=== PATIENT | female | born 1975 | race Caucasian/White ===

== ENCOUNTER → 2019-08-26 08:46 | Outpatient (CLI) | payer MEDICARE, MEDICAID, SELFPAY ==
--- NOTE | 2019-08-26 08:48 | DI.CT.S_ITS ---
PROCEDURE: CT CHEST ABD PEL W CON INDICATIONS: Preoperative evaluation for anti-reflux surgery TECHNIQUE: After the administration of oral and intravenous contrast, 5 mm thick sections acquired from the lung apices to the symphysis. 5 mm coronal and sagittal reformats were performed, with additional 7 mm coronal MIP reformats through the lungs. For radiation dose reduction, the following was used: automated exposure control, adjustment of mA and/or kV according to patient size. COMPARISON: None. FINDINGS: Image quality: Excellent. CHEST: Lungs and pleura: No acute airspace opacities. Diffuse haziness throughout the lungs is likely secondary to decrease the dose. No focal consolidations. No evidence of aspiration pneumonia. No pleural effusions or pneumothorax. Central and peripheral airways appear patent and normal in caliber. Mediastinum: Heart size is at the upper limits of normal. No pericardial effusion. No mediastinal or hilar adenopathy by size criteria. Thoracic aorta and central pulmonary arteries are normal in size. Esophagus is normal in caliber. No hiatal hernia. Chest wall: No axillary or supraclavicular adenopathy by size criteria. Thyroid gland is unremarkable. ABDOMEN: Solid organs: Liver is normal in size and mildly diffusely hypodense without focal lesion. Gallbladder is partially contracted and is most entirely filled with hyperdense material versus calcified. A small hypodense filling defect is present near the neck. Biliary system is non dilated. Pancreas enhances normally. Spleen is normal in size and enhancement. There is a splenule anterior and caudal to the spleen. No adrenal nodules. Kidneys demonstrate normal size and enhancement, without hydronephrosis. Small corticomedullary cyst in the medial aspect of the left kidney. Peritoneum and bowel: Bowel loops demonstrate normal wall thickness and caliber. No free fluid or air. Nodes and vessels: No retroperitoneal or mesenteric adenopathy by size criteria. Aorta and inferior vena cava are normal in size. Miscellaneous: No ventral hernias. PELVIS: Genitourinary: Bladder wall thickness is normal. Uterus and ovaries are normal. Miscellaneous: No inguinal hernias or adenopathy. Bones: No suspicious bony lesions. No vertebral body compression fractures. IMPRESSION: 1. No suspicious findings in the chest. 2. Partially contracted, densely calcified gallbladder with a small filling defect near the intact of uncertain etiology. 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 3. Mild hepatic steatosis. 4. Heart size at the upper limits of normal. Dictated by: Floresita Corrales M.D. on 08/26/2019 at 13:24 Approved by: Floresita Corrales M.D. on 08/26/2019 at 13:32
== END ==
PROVIDERS: PCP Physician Assistant; Referring Provider Surgery; Visit Provider Surgery
DX: K44.9 Diaphragmatic hernia without obstruction or gangrene (principal); K21.9 Gastro-esophageal reflux disease without esophagitis; K76.0 Fatty (change of) liver, not elsewhere classified
CPT/HCPCS: 71260; 74177; Q9967

== ENCOUNTER → 2019-10-14 10:43 | Outpatient (CLI) | payer MEDICARE, MEDICAID, SELFPAY ==
--- NOTE | 2019-10-14 10:45 | DI.US.S_ITS ---
PROCEDURE: US ABDOMEN LIMITED INDICATIONS: ABN CT TECHNIQUE: Real-time focused scanning was performed of the abdomen, with image documentation. COMPARISON: [facility], CT, CT CHEST ABD PEL W CON, 08/26/2019, 9:35. FINDINGS: The liver demonstrates normal size. The liver demonstrates generalized increased echogenicity. This decreases ultrasound sensitivity for detection of hepatic masses. The gallbladder is packed with gallstones. This is seen on the prior CT. The gallbladder wall is not frankly thickened. No pericholecystic fluid is seen. The sonographic Pelayo sign is negative. There is no biliary dilatation, the common bile duct measures 7 mm. The visualized pancreas is unremarkable. IMPRESSION: The gallbladder is filled with gallstones. This can also be seen on the prior CT. No additional merari signs of cholecystitis are seen. The common bile duct measures at the upper limits of normal at 7 mm. Dictated by: Louis Perales M.D. on 10/14/2019 at 10:54 Approved by: Louis Perales M.D. on 10/14/2019 at 10:56
== END ==
PROVIDERS: PCP Physician Assistant; Referring Provider Surgery; Visit Provider Surgery
DX: R93.2 Abnormal findings on diagnostic imaging of liver and biliary tract (principal); R10.9 Unspecified abdominal pain; K80.20 Calculus of gallbladder without cholecystitis without obstruction
CPT/HCPCS: 76705

== ENCOUNTER → 2019-11-03 13:31 | Outpatient (CLI) | payer MEDICARE, MEDICAID, SELFPAY ==
[2019-11-04 13:45] LABS: COVID19 Sendout Not Detected (Not Detect)
== END ==
PROVIDERS: PCP Physician Assistant; Visit Provider Physician Assistant
DX: Z11.59 Encounter for screening for other viral diseases (principal)
CPT/HCPCS: 87635

== ENCOUNTER 2019-11-06 11:28 | Day surgery (SDC) | payer MEDICARE, MEDICAID, SELFPAY ==
[2019-11-06] VITALS (7 sets, daily range): BP systolic 105–121; BP diastolic 61–85; PULSE 75–85; RESP 10–16; TEMP 36.2–36.8; O2SAT 88–98; BMI 34.9
--- NOTE | 2019-11-06 | PATH_ITS ---
[facility] Accession Number: [id number] . 01 Material submitted: . gallbladder - GALLBLADDER . 02 Diagnosis: Gallbladder, Cholecystectomy: Cholelithiasis with mild chronic cholecystitis. No evidence of neoplasm. MRV 11/08/2019 1100 Local . 02 Electronically signed: . Franco Crowder MD, PhD, Pathologist NPI- [id number] . 01 Gross description: . Received in formalin, labeled gallbladder and consists of a 7.0 x 2.5 x 2.0 cm intact gallbladder with a 0.2 cm in diameter cystic duct. The serosa is hernandez-pink and smooth. Opening reveals multiple firm to friable green to hernandez-white cholelith fragments measuring 4.0 x 4.0 x 2.0 cm in aggregate. One cholelith is firmly lodged within the neck of the specimen. The mucosa is hernandez-pink and trabeculated, and the wall thickness measures 0.1 cm. Joiner Helper sections are submitted, to include cystic duct margin (en face, blue), body and fundus. ([id number]) /MRV 11/07/2019 1455 Local . 02 Pathologist provided ICD-10: K80.60 . 02 CPT . 572658 Performed at: 01 [facility] [address], [place], [place] [id number] MD Hiren Vallejo MD Phone: [phone] Performed at: 02 [facility] [address] [place], [place] [id number] MD Svetlana Whatley MD Phone: [phone]
[2019-11-06] MEDS: LACTATED RINGERS 1,000 ML 100 ML IV ×2 (12:03→14:51)
[2019-11-06] MEDS: ACETAMINOPHEN 325 MG TABLET 975 MG PO (12:06)
[2019-11-06] MEDS: SCOPOLAMINE 1 PATCH TOP (12:08)
[2019-11-06] MEDS: Non-Formulary Medication (Indocyanine 25 MG) 25 EACH IV (12:12)
--- NOTE | 2019-11-06 13:26 | PM.PREOP ---
Pre-operative Note COVID-19 COVID-19 status: Negative Result date/Date tested (Pos, Neg/Pending): 11/03/19 Interval Note History & Physical reviewed/Exam performed by Physician: Yes Changes to H&P: No
[2019-11-06] MEDS: PIPERACILLIN-TAZO 3.375 GM/50 ML FROZ.PIGGY IV (14:02)
--- NOTE | 2019-11-06 14:22 | PM.PROC.1 ---
Procedures Date/Time Date of procedure: 11/06/19 Time of procedure: 14:07 Intubation Time out performed: Yes Intubation complications: difficult intubation Additional comments: Difficult Airway Note Patient exam: MP2, small mouth opening, retrognathic, neck ROM decreased, obese. Procedure: Success with glidescope LoPro S3, (+) stylette. Easy mask with oral airway between attempts. Grade 3 with Bravo 2, Grade 4 with Mac 4. See anesthetic record 11/06/2019 for celeste holcomb. BBnaila DESAI Anesthesiologist
--- NOTE | 2019-11-06 14:24 | SUR.OPER ---
Supine on padded OR bed, head on pillow, arms secured on padded arm boards at <90 degrees abduction, legs uncrossed, safety belt at thigh, tape over blanket over lower legs.
[2019-11-06] MEDS: BUPIVACAINE 0.25% W/ EPI 30 ML VIAL 60 ML INJ (14:29)
--- NOTE | 2019-11-06 15:41 | PM.OP.1 ---
Operative Date/Time/Diagnoses Date of procedure: 11/06/19 Time of procedure: 15:41 Pre-op diagnosis: Symptomatic cholelithiasis Post-op diagnosis: other (Symptomatic cholelithiasis, chronic cholecystitis) Procedure & Clinicians Procedure: Laparoscopic cholecystectomy, indocyanine cholangiography Same procedure as scheduled: Yes Indications: This is a 43-year-old woman with epigastric pain consistent with biliary colic, as well as a gallbladder full of gallstones Surgeon: Karen Weiss Click Yes if Unassisted: Yes Anesthesia Type: General Operative Notes Findings: Thickened gallbladder, full of multiple stones, soft and non enlarged cystic duct Specimen(s): other (Gallbladder) Estimated Blood Loss (mL): 2 Procedure in detail: The patient was brought into the operating room and placed supine on the OR table. Sequential compression devices were placed on both legs and turned on. Appropriate perioperative antibiotics were given prior to the start of surgery. General anesthesia was induced the patient was intubated. The abdomen was prepped and draped in sterile fashion. Surgical time-out was conducted. Local anesthetic was injected under the skin just superior to the umbilicus and a 5 mm vertical incision was made at this site. The umbilical stalk was grasped with a Nicole and elevated. A Veress needle was passed through the fascia into proper position. The position was tested with a saline drop test which was appropriate for intra-abdominal Veress needle placement. The abdomen was then insufflated in the usual fashion. Once insufflated to 15 mm Hg the Veress needle was removed and a 5 mm optical trocar was placed under direct vision using a 5 mm 30 degree scope. Once the camera was inside the abdomen I took a look around. There was no injury from port placement. Two additional ports were placed in a similar fashion in the right upper quadrant and a 10 mm port was placed in the epigastrium. Through the 2 lateral ports the gallbladder was grasped and elevated and the infundibulum was retracted laterally to the patient's right. This exposed the gallbladder hilum and allowed for dissection of the cystic duct and cystic artery. The gallbladder was elongated, thickened, and covered with a thick rind of fatty tissue. It contained very large gallstones, making it difficult to grasp. Careful dissection was undertaken to reveal the gallbladder and hilar structures. Indocyanine green had been given in the preop area, both in the fluorescent camera was now used to view the bile ducts. We were able to identify the cystic duct and artery using indocyanine cholangiography. The common bile duct was clearly down and away from our area of dissection. Once the cystic duct and artery were completely dissected out, I was able to see liver behind and between both structures without any other structures in the way, giving us the critical view of safety. At this point I doubly clipped both structures on the patient's side and put a single clip on the gallbladder side of both the cystic duct and artery. Both structures were then divided with laparoscopic [place]. Following this the gallbladder was gradually dissected free from the liver. There were several accessory vessels within the scar tissue between the gallbladder and the liver. These were controlled with hemoclips and cautery. Once the gallbladder was entirely freed, it was placed inside an Endo-Catch bag and removed through the epigastric port site. I [did] have to enlarge the epigastric site in order to get the gallbladder out. Once it was out and passed off to the back table I then took another look inside the abdomen. I dried up any remaining blood or fluid on the lateral side of the liver and in the subhepatic space using a Ray-Meño. The Ray-Meño was removed from the abdomen. There was no active bleeding or leaking of bile from the gallbladder fossa or from the clipped stumps of the cystic duct and artery. At this point the insufflation was removed from the abdomen and the epigastric port site was closed with 0 Vicryl suture in the fascia, 3 O Vicryl in the subcutaneous layers, and 4 Monocryl in the skin. The remaining port sites were closed with 4 Monocryl in the skin. Each port site was sealed with Dermabond. Local anesthetic was given at each of the port sites and in the fascia. This concluded the procedure. At this point the needle sponge and instrument counts were correct. The gallbladder was passed off the table for pathology. Patient was awakened from anesthesia and extubated. She was transferred to the postanesthesia care unit in stable condition. Complications: none Post-operative Condition: stable Disposition: PACU
== END 2019-11-06 16:55 | disposition home or self-care (01) ==
PROVIDERS: PCP Physician Assistant; Referring Provider Surgery; Visit Provider Surgery
PROC: 0FT44ZZ Resection of Gallbladder, Percutaneous Endoscopic Approach (ICD-10-PCS; CPT 47562; principal; 2019-11-06 13:15)
DX: K80.10 Calculus of gallbladder with chronic cholecystitis without obstruction (principal); R62.59 Other lack of expected normal physiological development in childhood; E03.9 Hypothyroidism, unspecified; K21.9 Gastro-esophageal reflux disease without esophagitis; F31.9 Bipolar disorder, unspecified; E66.9 Obesity, unspecified; Z68.34 Body mass index [BMI] 34.0-34.9, adult; G47.33 Obstructive sleep apnea (adult) (pediatric); E78.5 Hyperlipidemia, unspecified
CPT/HCPCS: 47563; J0330; J1100; J1885; J2250; J2405; J2543; J2704